=== PATIENT | male | born 1970 | race Caucasian/White ===

== ENCOUNTER 2017-09-02 12:03 | Emergency (ER) | END 2017-09-02 14:33 | disposition home or self-care (01) ==

== ENCOUNTER 2018-06-18 09:22 | Emergency (ER) | payer SELFPAY ==
[~2018-06-18] VITALS: Ht 170.2 cm; Wt 59.3 kg
[~2018-06-18 09:22] MED LIST: ACYC800T PO; HDRP454O TOP; HYDR-3498 PO; NEOM1PAC TP; ONDA4TAB35 PO; PANT40TA3 PO; POLY17PO6 PO; PRED20TA PO
[2018-06-18 09:27] VITALS: Ht 170.2 cm; Wt 59.3 kg
[2018-06-18] MEDS ORDERED: ONDANSETRON 4 MG INJ IV STA (09:35)
[2018-06-18] MEDS ORDERED: SOD CHLORIDE 0.9% 1,000 ML IV STA (09:35)
[2018-06-18] MEDS ORDERED: HYDROmorphONE 1 MG/ML SYG IV STA (09:35)
[2018-06-18] MEDS ORDERED: DIPHTH/TET/ACEL PERTUSS (ADULT) 0.5 ML VIAL IM* ONE (10:00)
[2018-06-18] MEDS ORDERED: CEFAZOLIN 2 GM/50 ML (PMX) 50 ML IVPB ONE (10:00)
--- NOTE | 2018-06-18 10:42 | ERD ---
ER Documentation Chief Complaint Chief Complaint laceration right palm tree saw HPI During the patient's encounter translation services were utilized Language: Wolof Source: In person 47-year-old male who presents to the emergency room with an injury to his right, dominant hand. The patient was using a tree saw just prior to arrival. Saw kicked back and hit his right hand. The patient has a macerated wound to the right hand. He has moderate throbbing pain to the right hand and limited range of motion of the third digit, middle finger. Unknown tetanus status. Denies any other injuries. ROS All systems reviewed and are negative except as per history of present illness. Medications Home Meds Active Scripts Neomycin Abdullahi/Bacitrac Zn/Poly (Triple Antibiotic Ointment) 1 Each Oint.pack, 1 EACH TP TID for 5 Days Prov:MAXIMINO MONTEMAYOR MD 09/02/17 Hydrocodone Bit-Acetaminophen* ([place]*) 5-325 Mg Tab, 1 TAB PO Q6 PRN for PAIN, #7 TAB Prov:KALANI ARGUELLES PA-C 08/04/15 Prednisone* (Prednisone*) 20 Mg Tab, 40 MG PO DAILY for 4 Days, TAB Prov:KALANI ARGUELLES PA-C 08/04/15 Acyclovir* (Acyclovir*) 800 Mg Tablet, 800 MG PO QID, #5 TAB Prov:KALANI ARGUELLES PA-C 08/04/15 Hydrophilic Base* (Aquaphor*) 454 Gm-Topical Oint, 1 APPLIC TOP BID, #1 JAR Prov:KALANI ARGUELLES PA-C 06/07/15 Polyethylene Glycol* (Miralax*) 17 Gm Powd.pack, 17 GM PO DAILY, #7 Prov:KALANI ARGUELLES PA-C 06/07/15 Pantoprazole* (Protonix*) 40 Mg Tablet.dr, 40 MG PO DAILY, #20 TAB Prov:JORGE CUMMINGS MD 06/05/15 Ondansetron Hcl* (Zofran* ODT) 4 mg -ODT Tab.disper, 4 MG PO Q6 PRN for NAUSEA AND/OR VOMITING, #30 TAB Prov:JORGE CUMMINGS MD 06/05/15 Allergies Allergies: Coded Allergies: No Known Allergy (Unverified , 06/05/15) PMhx/Soc History of Surgery: No Anesthesia Reaction: No Hx Neurological Disorder: No Hx Respiratory Disorders: No Hx Cardiac Disorders: No Hx Psychiatric Problems: No Hx Miscellaneous Medical Probl: No Hx Alcohol Use: Yes (2beers/day) Hx Substance Use: No Hx Tobacco Use: Yes (3cig/day) FmHx Family History: No diabetes Physical Exam Vitals Vital Signs Date Temp Pulse Resp B/P (MAP) Pulse Ox O2 O2 Flow FiO2 Time Delivery Rate 06/18/18 98.5 107 18 169/71 99 09:27 (103) Physical Exam General: Well developed, well nourished, no acute distress Head: Normocephalic, atraumatic. Eyes: Pupils equally reactive, EOM intact ENT: Moist mucous membranes Neck: Supple, no lymphadenopathy Respiratory: Lungs clear bilaterally, no distress Cardiovascular: RRR, no murmurs, rubs, or gallops Abdominal: Soft, non-tender, non-distended, no peritoneal signs : Deferred MSK: The patient has an obvious macerated wound to the right hand. There is near complete avulsion of the skin tissue near the MCP joints of the fifth fourth and third digits with exposed tendinous structures of the third digit and inability to move and flex the third digit. The patient also has an irregular macerated wound to the dorsal aspect of the thumb, no evidence of active arterial bleeding, capillary refill is present but limited examination given sig nificance of wound. Neurologic: Alert and oriented, moving all extremities, normal speech, no focal weakness, no cerebellar signs Skin: As described above Psych: Normal mood Result Diagram: 06/18/18 0951 06/18/18 0951 Results 24 hrs Laboratory Tests Test 06/18/18 09:51 White Blood Count 7.9 10^3/ul Red Blood Count 3.75 10^6/ul Hemoglobin 9.2 g/dl Hematocrit 29.1 % Mean Corpuscular Volume 77.6 fl Mean Corpuscular Hemoglobin 24.5 pg Mean Corpuscular Hemoglobin Concent 31.6 g/dl Red Cell Distribution Width 18.1 % Platelet Count 111 10^3/UL Mean Platelet Volume 9.9 fl Immature Granulocytes % 0.400 % Neutrophils % 34.4 % Lymphocytes % 52.7 % Monocytes % 10.8 % Eosinophils % 1.3 % Basophils % 0.4 % Nucleated Red Blood Cells % 0.0 /100WBC Immature Granulocytes # 0.030 10^3/ul Neutrophils # 2.7 10^3/ul Lymphocytes # 4.1 10^3/ul Monocytes # 0.9 10^3/ul Eosinophils # 0.1 10^3/ul Basophils # 0.0 10^3/ul Nucleated Red Blood Cells # 0.0 10^3/ul Prothrombin Time 14.4 Sec Prothrombin Time Ratio 1.1 INR International Normalized Ratio 1.11 Activated Partial Thromboplast Time 30.7 Sec Sodium Level 143 mmol/L Potassium Level 3.6 mmol/L Chloride Level 100 mmol/L Carbon Dioxide Level 26 mmol/L Anion Gap 17 Blood Urea Nitrogen 4 mg/dl Creatinine 0.60 mg/dl Est Glomerular Filtrat Rate mL/min > 60 mL/min Glucose Level 171 mg/dl Calcium Level 8.2 mg/dl Current Medications Medications Dose Sig/Ama Start Time Status Last (Trade) Ordered Route PRN Stop Time Admin Dose Reason Admin Sodium 1,000 ml @ Q1H STAT 06/18/18 DC 06/18/18 Chloride 1,000 mls/hr IV 09:35 06/18/18 09:48 10:34 1 mg ONCE STAT 06/18/18 DC 06/18/18 Hydromorphone IV 09:35 06/18/18 09:51 HCl 09:37 (Dilaudid) Ondansetron 4 mg ONCE STAT 06/18/18 DC 06/18/18 HCl (Zofran IV 09:35 06/18/18 09:50 Inj) 09:37 Diphtheria/ 0.5 ml ONCE ONCE 06/18/18 DC 06/18/18 Tetanus/Acell IM* 10:00 06/18/18 09:52 Pertussis 10:02 (Adacel) Cefazolin 50 ml @ ONCE ONCE 06/18/18 DC 06/18/18 Sodium/ 100 mls/hr IVPB 10:00 06/18/18 10:20 Dextrose 10:29 Procedures/MDM EKG, MONITORS, & DIAGNOSTIC IMAGING: EKG: I reviewed and interpreted a 12-lead EKG. Rhythm: Normal sinus rhythm ST Changes: No contiguous ST segment elevations T waves: No contiguous T wave inversions Impression: [No evidence of acute cardiac ischemia] X-ray right hand: I reviewed and interpreted multiple views of the x-ray Bones: No evidence of acute fracture dislocation or subluxation Soft tissue: No evidence of foreign body PROCEDURES: Splint Application Note: Splint type: Bulky dressing Extremity: Right hand Indication: Complicated hand wound The patient was consented at bedside prior to splint application and states u nderstanding of risks, benefits, and alternatives. The patient was neurovascularly intact prior to and status post application of the splint. The patient tolerated the procedure well and there were no complications. LAB INTERPRETATION: I reviewed the laboratory testing and it shows [no evidence of acute process] MEDICAL DECISION MAKING: The patient is a complicated, dominant hand wound with a avulsion of skin tissue and clear laceration of the flexor tendon of the right third finger. This is a complicated wound to the right hand, dominant hand and warrants surgical evaluation. The patient appears to be neurovascularly intact without evidence of arterial hemorrhage. Patient has a clear disruption of the flexor tendon. He warrants antibiotics, tetanus updating, bulky dressing. ER COURSE: * The patient was given pain control medication, antibiotics. Wound was irrigated and dressed * Attempted to contact a hand specialist with privileges at our facility, Dr. Villa. She was unavailable to see the patient. For this reason I will attempt transfer to higher level facility using MAC. * The patient's pain is well controlled and pending transportation. Hemostasis achieved. * The patient has been accepted at [facility] by Dr. Calderon. They prefer ER to ER transfer. The patient is stable for transfer and the benefits outweigh the risks. CONSULTATION: Hand surgeon, Dr. Villa notified around 10:30 AM as documented above DISPOSITION PLAN: Transferred to [facility] for higher level of care Departure Diagnosis: Primary Impression: Laceration of right hand, complicated Encounter type: initial encounter Qualified Codes: S61.411A - Laceration without foreign body of right hand, initial encounter Additional Impression: Flexor tendon laceration of right hand with open wound Encounter type: initial encounter Qualified Codes: S66.821A - Laceration of other specified muscles, fascia and tendons at wrist and hand level, right hand, initial encounter; S61.401A - Unspecified open wound of right hand, ini tial encounter Condition: Stable SETH CROWELL MD Jun 18, 2018 10:42
[2018-06-18 12:02] VITALS: BP 116/80; PULSE 98; RESP 16
== END 2018-06-18 12:26 | disposition short-term general hospital (02) ==
LOC: E/R 09:22
DX: S61.411A Laceration without foreign body of right hand, initial encounter (principal); S66.821A Laceration of other specified muscles, fascia and tendons at wrist and hand level, right hand, initial encounter; M79.641 Pain in right hand; W27.0XXA Contact with workbench tool, initial encounter; Y92.9 Unspecified place or not applicable; Z23 Encounter for immunization; Z87.891 Personal history of nicotine dependence
CPT/HCPCS: 36415; 73130; 80048; 85025; 85610; 85730; 90471; 90715; 93005; 96374; 96375; 99285; J0690; J1170; J2405; J7030